=== PATIENT | female | born 1970 | race American Indian/Alaskan Native ===

== ENCOUNTER 2018-07-24 17:59 | Emergency (ER) | payer OTHER ==
--- NOTE | 2018-07-24 18:08 | Emergency Department Report ---
Blank Doc - Documentation Documentation: 47 y o ld [place] and daughter presents to Ed cc of bed bug bites aCc eval
[2018-07-24 18:36] VITALS: BP 125/80
--- NOTE | 2018-07-24 18:57 | Emergency Department Report ---
ED Rash HPI - HPI Chief Complaint: Skin Rash Stated Complaint: BED BUGS? Time Seen by Provider: 07/24/18 18:06 Location: Upper Extremities Suspected Cause: Insect Rash Symptoms: Yes Itching, No Facial Swelling, No Tongue/Oral Swelling, No Breathing Difficulties, No Choking Sensation, No Wheezing/Dyspnea, No Peeling, No Blistering, No Fever, No Lightheaded, No Malaise, No Myalgias Severity: mild, moderate ED Review of Systems ROS: Stated complaint: BED BUGS? Other details as noted in HPI Comment: All other systems reviewed and negative ED Past Medical Hx - Past Medical History Previous Medical History?: Yes Hx Psychiatric Treatment: Yes - Surgical History Past Surgical History?: No - Social History Smoking Status: Current Every Day Smoker Substance Use Type: Alcohol, Prescribed - Medications Home Medications: Home Medications Medication Instructions Recorded Confirmed Last Taken Type Acetaminophen/Codeine [Tylenol #3] 1 tab PO Q6H PRN #20 tab 02/02/15 Unknown Rx Ibuprofen [Motrin] 600 mg PO Q8H PRN #40 tablet 02/02/15 Unknown Rx cephALEXin [Keflex] 500 mg PO Q6HR #40 capsule 02/02/15 Unknown Rx Calamine/Zinc Oxide [Calamine 1 ml TP DAILY #1 lotion 07/24/18 Unknown Rx Lotion] Permethrin 5% [Acticin 5% CREAM] 1 applicatio TP 1XW #1 tube 07/24/18 Unknown Rx diphenhydrAMINE [Benadryl CAP] 25 mg PO QHS PRN #30 capsule 07/24/18 Unknown Rx Rash Exam - Exam General: Vital signs noted. No distress. Alert and acting appropriately. HEENT: No Periorbital Edema, No Conjuctival Injection, No Chemosis, No Perioral Edema, No Tongue Edema, No Uvular Edema, No Compromised Airway, No Drooling Lungs: Yes Good Air Exchange (Normal Breath Sounds), No Wheezes, No Ronchi, No Stridor, No Cough, No Labored Respirations, No Retractions, No Use of Accessory Muscles, No Other Abnormal Lung Sounds Heart: Yes Regular, No Murmur Skin: Yes Urticarial Rash, Yes Maculopapular Rash, Yes Erythema (erythema is insect bite thomas on arms), No Morbilliform rash, No Bulla(e), No Excoriations, No Weeping, No Tenderness, No Edema, No Encrustations, No Other Other: Positive: Abdomen Normal, Neurologic Normal, Musculoskeletal Normal ED Course Vital Signs 07/24/18 18:34 Temperature 98.8 F Pulse Rate 73 Respiratory 20 Rate Blood Pressure 125/80 O2 Sat by Pulse 99 Oximetry ED Medical Decision Making - Medical Decision Making 27-year-old female presents with insect bite. Discussed with patient to follow up with primary care physician. She is in no acute distress. Discussed with pt to use medication as prescribed. Critical care attestation.: If time is entered above; I have spent that time in minutes in the direct care of this critically ill patient, excluding procedure time. ED Disposition Clinical Impression: Bed bug bite Disposition: TO HOME OR SELFCARE Is pt being admited?: No Does the pt Need Aspirin: No Condition: Stable Instructions: Insect Bite or Sting (ED) Additional Instructions: f/u with pcp take medication as presecibed Prescriptions: diphenhydrAMINE [Benadryl CAP] 25 mg PO QHS PRN #30 capsule PRN Reason: Itching Permethrin 5% [Acticin 5% CREAM] 1 applicatio TP 1XW #1 tube Calamine/Zinc Oxide [Calamine Lotion] 1 ml TP DAILY #1 lotion Referrals: ROBERT ROSARIO MD [Primary Care Provider] - 3-5 Days Forms: Work/School Release Form(ED) Time of Disposition: 19:09
== END 2018-07-24 19:18 | disposition home or self-care (01) ==
LOC: ED 17:59
DX: S40.869A Insect bite (nonvenomous) of unspecified upper arm, initial encounter (principal); L50.9 Urticaria, unspecified; F17.200 Nicotine dependence, unspecified, uncomplicated; F19.10 Other psychoactive substance abuse, uncomplicated; W57.XXXA Bitten or stung by nonvenomous insect and other nonvenomous arthropods, initial encounter; Y93.89 Activity, other specified; Y92.89 Other specified places as the place of occurrence of the external cause; Y99.8 Other external cause status
CPT/HCPCS: 99282

== ENCOUNTER 2018-08-28 05:03 | Observation (INO) | payer OTHER ==
[2018-08-28 06:16] LABS: Basophils # (Auto) 0.1 K/mm3 (0.0-0.1); Basophils % (Auto) 0.7 % (0.0-1.8); Eosinophils # (Auto) 0.1 K/mm3 (0.0-0.4); Eosinophils % (Auto) 1.7 % (0.0-4.3); Hematocrit 40.1 % (30.3-42.9); Hemoglobin 13.3 gm/dl (10.1-14.3); Lymphocytes # (Auto) 1.5 K/mm3 (1.2-5.4); Lymphocytes % (Auto) 20.8 % (13.4-35.0); Mean Corpuscular HGB Conc 33 % (30-34); Mean Corpuscular Volume 100 fl (79-97); Monocytes # (Auto) 0.4 K/mm3 (0.0-0.8); Monocytes % (Auto) 5.9 % (0.0-7.3); Platelet Count 184 K/mm3 (140-440); Red Blood Count 4.02 M/mm3 (3.65-5.03); Red Cell Distribution Width 14.4 % (13.2-15.2)
[2018-08-28 06:42] LABS: Alanine Aminotransferase 6 units/L (7-56); Albumin 3.9 g/dL (3.9-5); BUN/Creatinine Ratio 13; Blood Urea Nitrogen 12 mg/dL (7-17); Calcium 9.1 mg/dL (8.4-10.2); Hemolysis Index 30
--- NOTE | 2018-08-28 07:10 | XRay Report ---
CHEST PA AND LATERAL VIEWS INDICATION: Chest pain. COMPARISON: None. FINDINGS: Support devices: None. Heart: Within normal limits. Lungs/Pleura: No acute pulmonary or pleural findings. IMPRESSION: 1. No significant abnormality. Signer Name: Oswaldo Hartman MD Signed: 08/28/2018 7:06 AM Workstation Name: [id number]
--- NOTE | 2018-08-28 09:05 | Emergency Department Report ---
ED Chest Pain HPI - General Chief Complaint: Chest Pain Stated Complaint: CHEST PAIN Time Seen by Provider: 08/28/18 09:01 Source: patient, EMS Mode of arrival: Stretcher Limitations: No Limitations - History of Present Illness Initial Comments: This is a 47-year-old female presents for evaluation of chest pain. She states that the pain woke her up from sleep and increased on deep inspiration. She did have some shortness of breath but no cough. She denied leg pain or swelling. She states a month ago she went to [place] but has had no recent traveling otherwise. She did complain of some back discomfort but no arm or neck radiation. She states that she has not experienced chest pain like this before. Patient states that she's been told her cholesterol is elevated but is not on medication. Apparently she has a history of a psychiatric disorder but is not on medication for this either at this time. She states that her of a heart attack in 2015. She does not have any first-degree relatives that were diagnosed with significant coronary artery disease. MD Complaint: chest pain -: unknown Onset: awoke with symptoms Pain Location: substernal Severity: moderate Quality: heaviness Consistency: constant Improves With: nothing Worsens With: inspiration re: dyspnea. denies: nausea, vomting, diaphoresis, sense of impending doom Other Symptoms: denies: cough, fever, syncope Treatments Prior to Arrival: none Aspirin use within the Past 7 Days: (0) No - Related Data Previous Rx's Medication Instructions Recorded Last Taken Type Acetaminophen/Codeine [Tylenol #3] 1 tab PO Q6H PRN #20 tab 02/02/15 Unknown Rx Ibuprofen [Motrin] 600 mg PO Q8H PRN #40 tablet 02/02/15 Unknown Rx cephALEXin [Keflex] 500 mg PO Q6HR #40 capsule 02/02/15 Unknown Rx Calamine/Zinc Oxide [Calamine 1 ml TP DAILY #1 lotion 07/24/18 Unknown Rx Lotion] Permethrin 5% [Acticin 5% CREAM] 1 applicatio TP 1XW #1 tube 07/24/18 Unknown Rx diphenhydrAMINE [Benadryl CAP] 25 mg PO QHS PRN #30 capsule 07/24/18 Unknown Rx Allergies Allergy/AdvReac Type Severity Reaction Status Date / Time No Known Allergies Allergy Verified 06/02/19 18:01 Heart Score - HEART Score History: Moderately suspicious EKG: Normal Age: 45-65 Risk factors: 1-2 risk factors Troponin: < normal limit HEART Score: 3 - Critical Actions Critical Actions: 0-3 pts:0.9-1.7%risk of adverse cardiac event.Candidate for discharge ED Review of Systems ROS: Stated complaint: CHEST PAIN Other details as noted in HPI Constitutional: denies: chills, fever Eyes: denies: eye pain, eye discharge, vision change ENT: denies: ear pain, throat pain Respiratory: shortness of breath. denies: cough, wheezing Cardiovascular: chest pain. denies: palpitations Endocrine: no symptoms reported Gastrointestinal: denies: abdominal pain, nausea, diarrhea Genitourinary: denies: urgency, dysuria, discharge Musculoskeletal: denies: joint swelling, arthralgia Skin: denies: rash, lesions Neurological: denies: headache, weakness, paresthesias Psychiatric: denies: anxiety, depression Hematological/Lymphatic: denies: easy bleeding, easy bruising ED Past Medical Hx - Past Medical History Hx Psychiatric Treatment: Yes - Surgical History Past Surgical History?: No - Social History Smoking Status: Current Every Day Smoker - Medications Home Medications: Home Medications Medication Instructions Recorded Confirmed Last Taken Type Acetaminophen/Codeine [Tylenol #3] 1 tab PO Q6H PRN #20 tab 02/02/15 Unknown Rx Ibuprofen [Motrin] 600 mg PO Q8H PRN #40 tablet 02/02/15 Unknown Rx cephALEXin [Keflex] 500 mg PO Q6HR #40 capsule 02/02/15 Unknown Rx Calamine/Zinc Oxide [Calamine 1 ml TP DAILY #1 lotion 07/24/18 Unknown Rx Lotion] Permethrin 5% [Acticin 5% CREAM] 1 applicatio TP 1XW #1 tube 07/24/18 Unknown Rx diphenhydrAMINE [Benadryl CAP] 25 mg PO QHS PRN #30 capsule 07/24/18 Unknown Rx ED Physical Exam - General Limitations: No Limitations General appearance: alert, in no apparent distress, obese - Head Head exam: Present: atraumatic, normocephalic - Eye Eye exam: Present: normal appearance. Absent: scleral icterus - ENT ENT exam: Present: mucous membranes moist - Neck Neck exam: Present: normal inspection. Absent: tenderness, meningismus - Respiratory Respiratory exam: Present: normal lung sounds bilaterally. Absent: respiratory distress - Cardiovascular Cardiovascular Exam: Present: regular rate, normal rhythm. Absent: systolic murmur, diastolic murmur, rubs, gallop - GI/Abdominal GI/Abdominal exam: Present: soft, normal bowel sounds. Absent: distended, tenderness, guarding, rebound, rigid - Extremities Exam Extremities exam: Present: normal inspection - Back Exam Back exam: Present: normal inspection - Neurological Exam Neurological exam: Present: alert, oriented X3, CN II-XII intact. Absent: motor sensory deficit - Psychiatric Psychiatric exam: Present: normal affect, normal mood - Skin Skin exam: Present: warm, dry, intact, normal color. Absent: rash ED Course Vital Signs 08/28/18 08/28/18 08/28/18 05:44 08:41 11:30 Temperature 97.7 F Pulse Rate 75 74 59 L Respiratory 18 16 16 Rate Blood Pressure 116/77 Blood Pressure 115/71 133/80 [Left] O2 Sat by Pulse 96 96 96 Oximetry - Reevaluation(s) Reevaluation #1: I was informed that the CTA was a poor injection. I will order a VQ scan. Patient to be admitted by the hospitalist service for further care and evaluation. 08/28/18 10:58 MIGUEL score - Miguel Score Age > 65: (0) No Aspirin use within the Past 7 Days: (0) No 3 or more CAD Risk Factors: (0) No 2 or more Angina events in past 24 hrs: (0) No Known CAD with more than 50% Stenosis: (0) No Elevated Cardiac Markers: (0) No ST Deviation Greater than 0.5mm: (0) No MIGUEL Score: 0 ED Medical Decision Making - Lab Data Result diagrams: 08/28/18 05:59 08/28/18 05:59 Laboratory Results - last 24 hr 08/28/18 08/28/18 08/28/18 05:59 05:59 05:59 WBC 7.2 RBC 4.02 Hgb 13.3 Hct 40.1 MCV 100 H MCH 33 H MCHC 33 RDW 14.4 Plt Count 184 Lymph % (Auto) 20.8 [place] % (Auto) 5.9 Eos % (Auto) 1.7 Baso % (Auto) 0.7 Lymph # 1.5 [place] # 0.4 Eos # 0.1 Baso # 0.1 Seg Neutrophils % 70.9 H Seg Neutrophils # 5.1 D-Dimer 265.07 H Sodium 143 Potassium 4.1 Chloride 104.4 Carbon Dioxide 28 Anion Gap 15 BUN 12 Creatinine 0.9 Estimated GFR > 60 BUN/Creatinine Ratio 13 Glucose 105 H Calcium 9.1 Total Bilirubin 0.20 AST 16 ALT 6 L Alkaline Phosphatase 55 Troponin T < 0.010 Total Protein 6.9 Albumin 3.9 Albumin/Globulin Ratio 1.3 HCG, Qual 08/28/18 05:59 WBC RBC Hgb Hct MCV MCH MCHC RDW Plt Count Lymph % (Auto) [place] % (Auto) Eos % (Auto) Baso % (Auto) Lymph # [place] # Eos # Baso # Seg Neutrophils % Seg Neutrophils # D-Dimer Sodium Potassium Chloride Carbon Dioxide Anion Gap BUN Creatinine Estimated GFR BUN/Creatinine Ratio Glucose Calcium Total Bilirubin AST ALT Alkaline Phosphatase Troponin T Total Protein Albumin Albumin/Globulin Ratio HCG, Qual Negative - EKG Data -: EKG Interpreted by Wy EKG shows normal: sinus rhythm, axis, intervals, QRS complexes, ST-T waves Rate: normal - EKG Data Interpretation: other (borderline first-degree AV block) - Radiology Data Radiology results: report reviewed IMPRESSION: 1. Suboptimal contrast bolus timing given extravasation as described above. Within this limitation, there is no large central PTE identified. The distal segmental and subsegmental distribution vessels are not adequately evaluated. It should be noted that the lungs are clear with no pleural effusion or even atelectasis. The heart size is also normal. Critical care attestation.: If time is entered above; I have spent that time in minutes in the direct care of this critically ill patient, excluding procedure time. ED Disposition Clinical Impression: Chest pain Qualifiers: Chest pain type: unspecified Qualified Code(s): R07.9 - Chest pain, unspecified Disposition: OP ADMIT IP TO THIS HOSP Is pt being admited?: Yes Does the pt Need Aspirin: Yes Condition: Stable Instructions: Chest Pain (ED) Referrals: MIGUEL BONNER MD [Primary Care Provider] - 3-5 Days Time of Disposition: 11:36
[2018-08-28] MEDS ORDERED: MORPHINE IV ONE (09:27)
[2018-08-28] MEDS ORDERED: NACL 0.9% 1000 ML 1,000 ML IV ONE (09:27)
[2018-08-28] MEDS ORDERED: ZOFRAN IV ONE (09:27)
[2018-08-28] MEDS ORDERED: ASPIRIN PO ONE (09:27)
--- NOTE | 2018-08-28 11:18 | Cat Scan Report ---
CTA chest with contrast INDICATION : Pleuritic CP. Generalized chest pain and heaviness since 3:00 AM today TECHNIQUE: Axial imaging performed through the chest, with contrast bolus timing set to maximize opa cification of the pulmonary arteries. 3-plane MIP reformatted images were obtained. All CT scans at this location are performed using CT dose reduction for ALARA by means of automated exposure control. Approximately 70 mL of intravenous contrast administered. Approximately 30 mL of contrast infiltrated in the antecubital fossa region. [facility] with retained sensat ion and had no significant pain. COMPARISON: None FINDINGS: Bolus: Suboptimal bolus timing given extravasation as above. PTE: No large central PTE identified. The distal segmental and subsegmental distribution is not adeq uately evaluated. Mediastinum: Heart and great vessels appear normal. No pathologic mediastinal adenopathy. Lungs: Lungs are clear. Upper abdomen: Limited imaging of the upper abdomen shows nothing acute. Bones: Degenerative changes in the spine with nothing acute. IMPRESSION: 1. Suboptimal contrast bolus timing given extravasation as described above. Within this limitation, t here is no large central PTE identified. The distal segmental and subsegmental distribution vessels a re not adequately evaluated. It should be noted that the lungs are clear with no pleural effusion or even atelectasis. The heart size is also normal. Signer Name: Yoel Wilder MD Signed: 08/28/2018 11:14 AM Workstation Name: [id number]
[2018-08-28] MEDS: DILAUDID IV PRN (17:32)
[2018-08-28] MEDS ORDERED: ZOFRAN IV PRN (19:23)
[2018-08-28] MEDS ORDERED: PERCOCET 5/325 PO PRN (19:23)
[2018-08-28] MEDS ORDERED: TYLENOL PO PRN (19:23)
[2018-08-28] MEDS ORDERED: SODIUM CHLORIDE FLUSH SYRINGE 10 ML IV PRN (19:23)
--- NOTE | 2018-08-28 19:26 | History and Physical Report ---
History of Present Illness Date of examination: 08/28/18 Date of admission: 08/28/18 13:17 Chief complaint: Chest pain since early AM History of present illness: 47-year-old female presents for evaluation of chest pain. She states that the pain woke her up from sleep and increased on deep inspiration. She did have some shortness of breath but no cough. No diaphoresis or palpitations.Chest pain is intermittent and 6/10 on a scale of 1 to 10. Past Medical History Hx Psychiatric Treatment: Yes Surgical History Past Surgical History?: No Social History Smoking Status: Current Every Day Smoker Family History Htn Medications Home Medications: Home Medications Medication Instructions Recorded Confirmed Last Taken Type Acetaminophen/Codeine [Tylenol #3] 1 tab PO Q6H PRN #20 tab 02/02/15 Unknown Rx Ibuprofen [Motrin] 600 mg PO Q8H PRN #40 tablet 02/02/15 Unknown Rx cephALEXin [Keflex] 500 mg PO Q6HR #40 capsule 02/02/15 Unknown Rx Calamine/Zinc Oxide [Calamine 1 ml TP DAILY #1 lotion 07/24/18 Unknown Rx Lotion] Permethrin 5% [Acticin 5% CREAM] 1 applicatio TP 1XW #1 tube 07/24/18 Unknown Rx diphenhydrAMINE [Benadryl CAP] 25 mg PO QHS PRN #30 capsule 07/24/18 Unknown Rx Review of Systems ROS: Stated complaint: CHEST PAIN Other details as noted in HPI Constitutional: denies: chills, fever Eyes: denies: eye pain, eye discharge, vision change ENT: denies: ear pain, throat pain Respiratory: shortness of breath. denies: cough, wheezing Cardiovascular: chest pain. denies: palpitations Endocrine: no symptoms reported Gastrointestinal: denies: abdominal pain, nausea, diarrhea Genitourinary: denies: urgency, dysuria, discharge Musculoskeletal: denies: joint swelling, arthralgia Skin: denies: rash, lesions Neurological: denies: headache, weakness, paresthesias Psychiatric: denies: anxiety, depression Hematological/Lymphatic: denies: easy bleeding, easy bruising Medications and Allergies Allergies Allergy/AdvReac Type Severity Reaction Status Date / Time No Known Allergies Allergy Verified 08/28/18 17:01 Home Medications Medication Instructions Recorded Confirmed Last Taken Type No Known Home Medications [No 08/28/18 08/28/18 Unknown History Reported Home Medications] Active Meds: Active Medications Hydromorphone HCl (Dilaudid) 0.5 mg IV Q3H PRN PRN Reason: Pain , Severe (7-10) Last Admin: 08/28/18 17:32 Dose: 0.5 mg Documented by: Exam - Constitutional Vitals: Temp Pulse Resp BP Pulse Ox 98.9 F 78 18 114/69 97 08/28/18 16:27 08/28/18 16:27 08/28/18 16:27 08/28/18 16:27 08/28/18 16:27 General appearance: Present: no acute distress, well-nourished - EENT Eyes: Present: PERRL ENT: hearing intact, clear oral mucosa - Neck Neck: Present: supple, normal ROM - Respiratory Respiratory effort: normal Respiratory: bilateral: CTA - Cardiovascular Heart rate: 70 Rhythm: regular Heart Sounds: Present: S1 & S2. Absent: rub, click - Extremities Extremities: no ischemia, pulses intact, pulses symmetrical, No edema Peripheral Pulses: within normal limits - Abdominal General gastrointestinal: Present: soft, non-tender, non-distended, normal bowel sounds Female genitourinary: Present: normal - Rectal Rectal Exam: deferred - Integumentary Integumentary: Present: clear, warm, dry - Musculoskeletal Musculoskeletal: gait normal, strength equal bilaterally - Psychiatric Psychiatric: appropriate mood/affect, intact judgment & insight - Neurologic Neurologic: CNII-XII intact, moves all extremities - Allied Health Allied health notes reviewed: nursing, case management Results - Labs CBC & Chem 7: 08/29/18 03:00 08/29/18 03:00 Labs: Laboratory Last Values WBC 7.2 K/mm3 (4.5-11.0) 08/28/18 05:59 RBC 4.02 M/mm3 (3.65-5.03) 08/28/18 05:59 Hgb 13.3 gm/dl (10.1-14.3) 08/28/18 05:59 Hct 40.1 % (30.3-42.9) 08/28/18 05:59 MCV 100 fl (79-97) H 08/28/18 05:59 MCH 33 pg (28-32) H 08/28/18 05:59 MCHC 33 % (30-34) 08/28/18 05:59 RDW 14.4 % (13.2-15.2) 08/28/18 05:59 Plt Count 184 K/mm3 (140-440) 08/28/18 05:59 Lymph % (Auto) 20.8 % (13.4-35.0) 08/28/18 05:59 [place] % (Auto) 5.9 % (0.0-7.3) 08/28/18 05:59 Eos % (Auto) 1.7 % (0.0-4.3) 08/28/18 05:59 Baso % (Auto) 0.7 % (0.0-1.8) 08/28/18 05:59 Lymph # 1.5 K/mm3 (1.2-5.4) 08/28/18 05:59 [place] # 0.4 K/mm3 (0.0-0.8) 08/28/18 05:59 Eos # 0.1 K/mm3 (0.0-0.4) 08/28/18 05:59 Baso # 0.1 K/mm3 (0.0-0.1) 08/28/18 05:59 Seg Neutrophils % 70.9 % (40.0-70.0) H 08/28/18 05:59 Seg Neutrophils # 5.1 K/mm3 (1.8-7.7) 08/28/18 05:59 265.07 ng/mlDDU (0-234) H 08/28/18 05:59 Sodium 143 mmol/L (137-145) 08/28/18 05:59 Potassium 4.1 mmol/L (3.6-5.0) 08/28/18 05:59 Chloride 104.4 mmol/L (98-107) 08/28/18 05:59 Carbon Dioxide 28 mmol/L (22-30) 08/28/18 05:59 15 mmol/L 08/28/18 05:59 BUN 12 mg/dL (7-17) 08/28/18 05:59 0.9 mg/dL (0.7-1.2) 08/28/18 05:59 Estimated GFR > 60 ml/min 08/28/18 05:59 13 % 08/28/18 05:59 Glucose 105 mg/dL (65-100) H 08/28/18 05:59 Calcium 9.1 mg/dL (8.4-10.2) 08/28/18 05:59 0.20 mg/dL (0.1-1.2) 08/28/18 05:59 AST 16 units/L (5-40) 08/28/18 05:59 ALT 6 units/L (7-56) L 08/28/18 05:59 55 units/L (35-129) 08/28/18 05:59 < 0.010 ng/mL (0.00-0.029) 08/28/18 05:59 6.9 g/dL (6.3-8.2) 08/28/18 05:59 3.9 g/dL (3.9-5) 08/28/18 05:59 1.3 % 08/28/18 05:59 HCG, Qual Negative (Negative) 08/28/18 05:59 Short CBC 08/29/18 Range/Units 03:00 WBC 6.2 (4.5-11.0) K/mm3 Hgb 12.3 (10.1-14.3) gm/dl Hct 37.0 (30.3-42.9) % Plt Count 176 (140-440) K/mm3 BMP 08/29/18 03:00 Sodium 137 Potassium 3.9 Chloride 101.4 Carbon Dioxide 24 BUN 10 Creatinine 0.8 Glucose 88 Calcium 8.7 Cardiac Enzymes 08/28/18 08/29/18 Range/Units 20:33 00:43 Troponin T < 0.010 < 0.010 (0.00-0.029) ng/mL Liver Function 08/29/18 Range/Units 03:00 Total Bilirubin 0.50 (0.1-1.2) mg/dL AST 13 (5-40) units/L ALT < 5 L (7-56) units/L Alkaline Phosphatase 50 (35-129) units/L Albumin 3.4 L (3.9-5) g/dL - Imaging and Cardiology EKG: report reviewed (NSR 70/min) Chest x-ray: report reviewed (NAF) Imaging and Cardiology: CTA Chest IMPRESSION: 1. Suboptimal contrast bolus timing given extravasation as described above. Within this limitation, there is no large central PTE identified. The distal segmental and subsegmental distribution vessels are not adequately evaluated. It should be noted that the lungs are clear with no pleural effusion or even atelectasis. The heart size is also normal. Assessment and Plan Advance Directives: Yes (FC) VTE prophylaxis?: Chemical Plan of care discussed with patient/family: Yes - Patient Problems (1) Chest pain Current Visit: Yes Status: Acute Qualifiers: Chest pain type: unspecified Qualified Code(s): R07.9 - Chest pain, unspecified Plan to address problem: R/o [place] Chest pain protocol Serial troponins Lexiscan in AM Diff dx of costochondritis and GErd (2) GERD (gastroesophageal reflux disease) Current Visit: Yes Status: Chronic Qualifiers: Esophagitis presence: without esophagitis Qualified Code(s): K21.9 - Gastro-esophageal reflux disease without esophagitis Plan to address problem: On Protonix (3) Extravasation injury of intravenous catheter site with other complication Current Visit: Yes Status: Acute Qualifiers: Encounter type: initial encounter Qualified Code(s): T82.898A - Other specified complication of vascular prosthetic devices, implants and grafts, initial encounter Plan to address problem: On Rt foraarm Conservvative treatment Hand elevation. (4) DVT prophylaxis Current Visit: Yes Status: Acute (5) DVT prophylaxis Current Visit: Yes Status: Acute Plan to address problem: On Lovenox and GI prophylaxis
[2018-08-28] MEDS: PEPCID IV SCH (21:30)
[2018-08-28] MEDS: SODIUM CHLORIDE FLUSH SYRINGE 10 ML IV SCH (21:30)
--- NOTE | 2018-08-28 22:55 | Nuclear Medicine Report ---
NM lung scan perf/vent INDICATION / CLINICAL INFORMATION: Pleuritic chest pain.. TECHNIQUE: Dose / Agent / Route: 13.5 mCi xenon 133 gas was inhaled and 5.3 mCi technetium 99m-MAA was administe red intravenously. COMPARISON: CT angiography of the chest performed earlier today. FINDINGS: No significant ventilatory abnormality is seen. There is patchy heterogeneity of perfusion throughout both lungs. No segmental or larger perfusion defect is seen. Today's chest radiograph is clear. IMPRESSION: Low probability for acute PTE. Signer Name: Anshul Fuentes MD Signed: 08/28/2018 10:50 PM Workstation Name: [id number]
[2018-08-29 03:31] LABS: Basophils % (Auto) 0.6 % (0.0-1.8); Eosinophils # (Auto) 0.2 K/mm3 (0.0-0.4); Eosinophils % (Auto) 2.4 % (0.0-4.3); Hemoglobin 12.3 gm/dl (10.1-14.3); Lymphocytes % (Auto) 31.7 % (13.4-35.0); Mean Corpuscular HGB Conc 33 % (30-34); Mean Corpuscular Volume 100 fl (79-97); Monocytes # (Auto) 0.5 K/mm3 (0.0-0.8); Monocytes % (Auto) 8.1 % (0.0-7.3); Platelet Count 176 K/mm3 (140-440); Red Cell Distribution Width 14.2 % (13.2-15.2)
[2018-08-29 03:55] LABS: Albumin 3.4 g/dL (3.9-5); BUN/Creatinine Ratio 13; Blood Urea Nitrogen 10 mg/dL (7-17); Calcium 8.7 mg/dL (8.4-10.2); Hemolysis Index 21
[2018-08-29 04:02] LABS: Alanine Aminotransferase < 5 units/L (7-56)
[2018-08-29] MEDS: PEPCID IV SCH ×2 (09:19→21:41)
[2018-08-29] MEDS: SODIUM CHLORIDE FLUSH SYRINGE 10 ML IV SCH ×2 (09:19→21:41)
[2018-08-29] MEDS: DILAUDID IV PRN ×2 (09:19→17:50)
--- NOTE | 2018-08-29 13:07 | Progress Note ---
Assessment and Plan Assessment and plan: Patient is a 47 yo woman with a history of tobacco dependency who presented with chest pains with deep breathing. * CTA Chest IMPRESSION: 1. Suboptimal contrast bolus timing given extravasation as described above. Within this limitation, there is no large central PTE identified. The distal segmental and subsegmental distribution vessels are not adequately evaluated. It should be noted that the lungs are clear with no pleural effusion or even atelectasis. The heart size is also normal. * V/Q lung scan: Low probability for PE (1) Chest pain Current Visit: Yes Status: Acute Qualifiers: Chest pain type: unspecified Qualified Code(s): R07.9 - Chest pain, unspecified Plan to address problem: R/o GA Chest pain protocol Serial troponins Lexiscan in AM Diff dx of costochondritis and GErd (2) GERD (gastroesophageal reflux disease) Current Visit: Yes Status: Chronic Qualifiers: Esophagitis presence: without esophagitis Qualified Code(s): K21.9 - Gastro-esophageal reflux disease without esophagitis Plan to address problem: On Protonix (3) Extravasation injury of intravenous catheter site with other complication Current Visit: Yes Status: Acute Qualifiers: Encounter type: initial encounter Qualified Code(s): T82.898A - Other specified complication of vascular prosthetic devices, implants and grafts, initial encounter Plan to address problem: On Rt foraarm Conservvative treatment Hand elevation. (4) DVT prophylaxis Current Visit: Yes Status: Acute Plan to address problem: On Lovenox and GI prophylaxis stress test in am, not today due to v/q scan History Interval history: Patient was seen and examined. Follow-up on current diagnosis of chest pains, none at rest but only with deep breathing. No overnight events reported to me. Patient denies any chest pain, shortness breath, nausea/vomiting or severe headaches. Imaging, nursing note, chart, labs and old chart reviewed. Discussed with patient. Hospitalist Physical - Physical exam Narrative exam: Gen: WDWN, NAD, Awake, Alert, Orientated HEENT: NCAT, EOMI, PERRL, OP Clear Neck: supple, no adenopathy, no thyromegaly, no JVD CVS/Heart: RRR, normal S1S2, pulses present bilaterally Chest/Lungs: CTA B, Symmetrical chest expansion, good air entry bilaterally GI/Abdomen: soft, NTND, good bowel sounds, no guarding or rebound /Bladder: no suprapubic tenderness, no CVA or paraspinal tenderness Extermity/Skin: no c/c/e, no obvious rash MSK: FROM x 4 Neuro: CN 2-12 grossly intact, no new focal deficits Psych: calm - Constitutional Vitals: Temp Pulse Resp BP Pulse Ox 98.4 F 79 18 102/70 98 08/29/18 11:38 08/29/18 11:38 08/29/18 11:38 08/29/18 11:38 08/29/18 11:38 General appearance: Present: no acute distress, well-nourished Results - Labs CBC & Chem 7: 08/29/18 03:00 08/29/18 03:00 Labs: Laboratory Last Values WBC 6.2 K/mm3 (4.5-11.0) 08/29/18 03:00 RBC 3.70 M/mm3 (3.65-5.03) 08/29/18 03:00 Hgb 12.3 gm/dl (10.1-14.3) 08/29/18 03:00 Hct 37.0 % (30.3-42.9) 08/29/18 03:00 MCV 100 fl (79-97) H 08/29/18 03:00 MCH 33 pg (28-32) H 08/29/18 03:00 MCHC 33 % (30-34) 08/29/18 03:00 RDW 14.2 % (13.2-15.2) 08/29/18 03:00 Plt Count 176 K/mm3 (140-440) 08/29/18 03:00 Lymph % (Auto) 31.7 % (13.4-35.0) 08/29/18 03:00 Calvert % (Auto) 8.1 % (0.0-7.3) H 08/29/18 03:00 Eos % (Auto) 2.4 % (0.0-4.3) 08/29/18 03:00 Baso % (Auto) 0.6 % (0.0-1.8) 08/29/18 03:00 Lymph # 2.0 K/mm3 (1.2-5.4) 08/29/18 03:00 Calvert # 0.5 K/mm3 (0.0-0.8) 08/29/18 03:00 Eos # 0.2 K/mm3 (0.0-0.4) 08/29/18 03:00 Baso # 0.0 K/mm3 (0.0-0.1) 08/29/18 03:00 Seg Neutrophils % 57.2 % (40.0-70.0) 08/29/18 03:00 Seg Neutrophils # 3.6 K/mm3 (1.8-7.7) 08/29/18 03:00 265.07 ng/mlDDU (0-234) H 08/28/18 05:59 Sodium 137 mmol/L (137-145) 08/29/18 03:00 Potassium 3.9 mmol/L (3.6-5.0) 08/29/18 03:00 Chloride 101.4 mmol/L (98-107) 08/29/18 03:00 Carbon Dioxide 24 mmol/L (22-30) 08/29/18 03:00 16 mmol/L 08/29/18 03:00 BUN 10 mg/dL (7-17) 08/29/18 03:00 0.8 mg/dL (0.7-1.2) 08/29/18 03:00 Estimated GFR > 60 ml/min 08/29/18 03:00 13 % 08/29/18 03:00 Glucose 88 mg/dL (65-100) 08/29/18 03:00 5.4 % (4-6) 08/28/18 20:33 Calcium 8.7 mg/dL (8.4-10.2) 08/29/18 03:00 0.50 mg/dL (0.1-1.2) 08/29/18 03:00 AST 13 units/L (5-40) 08/29/18 03:00 ALT < 5 units/L (7-56) L 08/29/18 03:00 50 units/L (35-129) 08/29/18 03:00 < 0.010 ng/mL (0.00-0.029) 08/29/18 00:43 5.7 g/dL (6.3-8.2) L 08/29/18 03:00 3.4 g/dL (3.9-5) L 08/29/18 03:00 1.5 % 08/29/18 03:00 HCG, Qual Negative (Negative) 08/28/18 05:59 Active Medications - Current Medications Current Medications: Generic Name Dose Route Start Last Admin Trade Name Freq PRN Reason Stop Dose Admin Acetaminophen 650 mg 08/28/18 19:23 Tylenol PO Q4H PRN Pain MILD(1-3)/Fever >100.5/FULLER Famotidine 20 mg 08/28/18 22:00 08/29/18 09:19 Pepcid IV 20 mg BID CLOVER Administration Hydromorphone HCl 0.5 mg 08/28/18 16:53 08/29/18 09:19 Dilaudid IV 0.5 mg Q3H PRN Administration Pain , Severe (7-10) Ondansetron HCl 4 mg 08/28/18 19:23 Zofran IV Q8H PRN Nausea And Vomiting Oxycodone/Acetaminophen 1 tab 08/28/18 19:23 Percocet 5/325 PO Q6H PRN Pain, Moderate (4-6) Sodium Chloride 10 ml 08/28/18 22:00 08/29/18 09:19 Sodium Chloride Flush Syringe 10 Ml IV 10 ml BID CLOVER Administration Sodium Chloride 10 ml 08/28/18 19:23 Sodium Chloride Flush Syringe 10 Ml IV PRN PRN LINE FLUSH
[2018-08-30] MEDS: DILAUDID IV PRN (07:18)
[2018-08-30] MEDS ORDERED: LEXISCAN IV ONE (08:25)
[2018-08-30] MEDS ORDERED: ZOFRAN ONE (10:26)
[2018-08-30 12:27] VITALS: BP 114/72
[2018-08-30] MEDS: SODIUM CHLORIDE FLUSH SYRINGE 10 ML IV SCH (13:21)
[2018-08-30] MEDS: PEPCID IV SCH (13:21)
--- NOTE | 2018-08-30 13:25 | Discharge Summary ---
Providers - Providers Date of Admission: 08/28/18 13:17 Date of discharge: 08/30/18 Attending physician: ANATOLIY oscar stress test Primary care physician: MIGUEL MERCER MD Hospitalization Condition: Stable Hospital course: Patient presented with atypical chest pain exacerbated by movement and reproducible chest pain in substernal area. Patient had negative isoenzymes stress tests unremarkable. Physical exam consistent with costochondritis. Disposition: - TO HOME OR SELFCARE - Discharge Diagnoses (1) Chest pain Status: Acute Qualifiers: Chest pain type: unspecified Qualified Code(s): R07.9 - Chest pain, un specified Core Measure Documentation - Palliative Care Palliative Care/ Comfort Measures: Not Applicable - Core Measures Any of the following diagnoses?: none Exam - Constitutional Vitals: Temp Pulse Resp BP Pulse Ox 98.2 F 83 20 114/72 97 08/30/18 04:34 08/30/18 12:26 08/30/18 07:18 08/30/18 12:26 08/30/18 12:26 General appearance: Present: no acute distress, well-nourished - EENT Eyes: Present: PERRL ENT: hearing intact, clear oral mucosa - Neck Neck: Present: supple, normal ROM - Respiratory Respiratory effort: normal Respiratory: bilateral: CTA - Cardiovascular Heart Sounds: Present: S1 & S2. Absent: rub, click - Extremities Extremities: pulses symmetrical, No edema Peripheral Pulses: within normal limits - Abdominal General gastrointestinal: Present: soft, non-tender, non-distended, normal bowel sounds Female genitourinary: Present: normal - Integumentary Integumentary: Present: clear, warm, dry - Musculoskeletal Musculoskeletal: gait normal, strength equal bilaterally - Psychiatric Psychiatric: appropriate mood/affect, intact judgment & insight - Neurologic Neurologic: CNII-XII intact, moves all extremities Plan Activity: no restrictions Diet: low fat, low cholesterol Follow up with: MIGUEL BONNER MD [Primary Care Provider] - 3-5 Days
--- NOTE | 2018-09-02 00:12 | Treadmill Report ---
NUCLEAR PERFUSION SCAN REFERRING PHYSICIAN: Dr. Ro. PROTOCOL: The patient was brought to the stress lab in a postabsorptive state, given 10 mCi of technetium 99m at rest. The patient underwent rest imaging. The patient underwent Lexiscan stress test. At peak stress, the patient was given 26 mCi of technetium 99m. Shortly thereafter, the patient underwent stress imaging. Raw imaging reveals mild GI artifact. No significant motion artifact. SPECT image examined carefully in horizontal long axis, vertical long axis, and short axis views. There is normal homogenous uptake of radioisotope in all reported segments. No evidence of significant fixed or reversible perfusion defects suggestive of prior infarction or active ischemia. Gated wall motion is normal systolic thickening, calculated ejection fraction of 60%. No TID. CONCLUSIONS: 1. Normal myocardial perfusion scan without evidence of active ischemia or prior infarction. 2. Normal left ventricular systolic performance without evidence of transient ischemic dilatation or stress-induced segmental wall motion abnormalities. JOB# [id number] WAQAS/KRISTINA
== END 2018-08-30 14:20 | disposition home or self-care (01) ==
LOC: ED 05:03 → 4A 13:17
PROVIDERS: ADMIT Internal Medicine; ATTEND Internal Medicine
DX: R07.89 Other chest pain (principal); K21.9 Gastro-esophageal reflux disease without esophagitis; T82.898A Other specified complication of vascular prosthetic devices, implants and grafts, initial encounter; F17.200 Nicotine dependence, unspecified, uncomplicated; Y84.8 Other medical procedures as the cause of abnormal reaction of the patient, or of later complication, without mention of misadventure at the time of the procedure; Y92.9 Unspecified place or not applicable
CPT/HCPCS: 36415; 71046; 71275; 78452; 78582; 80053; 83036; 84484; 84703; 85025; 85379; 93005; 93010; 93017; 96374; 96375; 96376; 99284; 99406; A9502; A9540; A9558; G0378; J1170; J2270; J2405; J2785; J7030; Q9967

== ENCOUNTER 2020-02-11 10:29 | Emergency (ER) | payer BC, OTHER ==
[2020-02-11 10:36] VITALS: BP 118/75
--- NOTE | 2020-02-11 12:25 | Emergency Department Report ---
- General Chief Complaint: Upper Respiratory Infection Stated Complaint: FLU SYM Time Seen by Provider: 02/11/20 12:21 Source: patient Mode of arrival: Ambulatory Limitations: No Limitations - History of Present Illness Initial Comments: Patient is a 49-year-old female presents emergency room complaints of viral-like symptoms that began 3 days ago. She states that her daughter is positive for COVID-19. She states that she did travel to [place]. She is complaining of generalized body aches, fever, occasional dry cough, loss of sense of smell and taste. She denies any vomiting, diarrhea, sore throat, ear pain, chest pain, shortness of breath, abdominal pain. Past medical history. No daily medications. No allergies medications. - Related Data Previous Rx's Medication Instructions Recorded Last Taken Type methylPREDNISolone [Medrol 4MG 4 mg PO DAILY #20 tab.ds.pk 08/30/18 Unknown Rx DOSEPAK (21 tabs)] Allergies Allergy/AdvReac Type Severity Reaction Status Date / Time No Known Allergies Allergy Verified 08/28/18 17:01 ED Review of Systems ROS: Stated complaint: FLU SYM Other details as noted in HPI Comment: All other systems reviewed and negative ED Past Medical Hx - Past Medical History Previous Medical History?: Yes Hx Psychiatric Treatment: Yes - Social History Smoking Status: Current Every Day Smoker - Medications Home Medications: Home Medications Medication Instructions Recorded Confirmed Last Taken Type methylPREDNISolone [Medrol 4MG 4 mg PO DAILY #20 tab.ds.pk 08/30/18 Unknown Rx DOSEPAK (21 tabs)] ED Physical Exam - General Limitations: No Limitations General appearance: alert, in no apparent distress - Head Head exam: Present: atraumatic, normocephalic - Eye Eye exam: Present: normal appearance - ENT ENT exam: Present: normal orophraynx, mucous membranes moist, TM's normal bilaterally, normal external ear exam - Respiratory Respiratory exam: Present: normal lung sounds bilaterally. Absent: respiratory distress, wheezes, rales, rhonchi, stridor, chest wall tenderness, accessory muscle use, decreased breath sounds, prolonged expiratory - Cardiovascular Cardiovascular Exam: Present: regular rate, normal rhythm, normal heart sounds. Absent: systolic murmur, diastolic murmur, rubs, gallop - Neurological Exam Neurological exam: Present: alert, oriented X3 - Psychiatric Psychiatric exam: Present: normal affect, normal mood - Skin Skin exam: Present: warm, dry, intact ED Course Vital Signs 02/11/20 10:35 Temperature 98.6 F Pulse Rate 83 Respiratory 18 Rate Blood Pressure 118/75 [Right] O2 Sat by Pulse 98 Oximetry ED Medical Decision Making - Medical Decision Making Patient is a 49-year-old female presents emergency room complaints of viral-like symptoms that began 3 days ago. She states that her daughter is positive for COVID-19. She states that she did travel to [place]. She is complaining of generalized body aches, fever, occasional dry cough, loss of sense of smell and taste. She denies any vomiting, diarrhea, sore throat, ear pain, chest pain, shortness of breath, abdominal pain. Past medical history. No daily medications. No allergies medications. Vitals are normal. No hypoxia, no tachycardia, no tachypnea, no hypotension. Breath sounds are clear bilaterally, no wheezing, no rales, no rhonchi, normal oropharynx, normal TMs and canals bilaterally. Patient does not have any clinical signs of bacterial pneumonia or bacterial bronchitis at this time. She has no clinical signs of dehydration. Patient is presenting with the symptoms during COVID-19 pandemic and she has had a contact with a COVID-19 positive person, discussed the possibility of COVID- 19 with patient, discussed very strict return precautions, discussed outpatient testing, discussed self quarantine. Patient does not meet hospital criteria for admission or for hospital COVID-19 testing. Advised patient Please increase your fluid intake over the next several days. May take Tylenol as needed for fever or body aches. May take zsoo-aet-rpxanyn cold symptom relief medication such as Mucinex or TheraFlu. Follow-up with a primary care doctor for reexamination. Return to emergency room immediately for any new or worsening symptoms including but not limited to difficulty breathing, shortness of breath, severe chest pain, unable to tolerate by mouth intake, etc. Please self quarantine for 10 days from the onset of your symptoms. Please do not go out in public. If you are around others at home please wear a mask. If you need to c ough or sneeze please do so in a napkin and immediately throw it away and immediately wash your hands. Wash your hands frequently. Wipe everything down. Recommend for you to get COVID-19 testing, may have this done at primary care doctor, health department, [facility] drive thru testing center. Critical care attestation.: If time is entered above; I have spent that time in minutes in the direct care of this critically ill patient, excluding procedure time. ED Disposition Clinical Impression: Viral URI with cough Disposition: DC-01 TO HOME OR SELFCARE Is pt being admited?: No Does the pt Need Aspirin: No Condition: Stable Instructions: Viral Respiratory Infection, Bxph-Pe-Cirl, COVID-19: How to Protect Yourself and Others - CDC, COVID-19, Prevent the Spread of COVID-19 if You Are Sick - [facility] Additional Instructions: Please increase your fluid intake over the next several days. May take Tylenol as needed for fever or body aches. May take cgqe-ykb-oknnrbd cold symptom relief medication such as Mucinex or TheraFlu. Follow-up with a primary care doctor for reexamination. Return to emergency room immediately for any new or worsening symptoms including but not limited to difficulty breathing, shortness of breath, severe chest pain, unable to tolerate by mouth intake, etc. Please self quarantine for 10 days from the onset of your symptoms. Please do not go out in public. If you are around others at home please wear a mask. If you need to cough or sneeze please do so in a napkin and immediately throw it away and immediately wash your hands. Wash your hands frequently. Wipe everything down. Recommend for you to get COVID-19 testing, may have this done at primary care doctor, health department, [facility] thru testing center. Referrals: your, primary care doctor [Other] - 2-3 Days Forms: Work/School Release Form(ED) Time of Disposition: 12:24 Print Language: WOLOF
== END 2020-02-11 13:08 | disposition home or self-care (01) ==
LOC: ED 10:29
DX: J06.9 Acute upper respiratory infection, unspecified (principal); B97.89 Other viral agents as the cause of diseases classified elsewhere; R05 Cough; F17.200 Nicotine dependence, unspecified, uncomplicated; Z79.899 Other long term (current) drug therapy
CPT/HCPCS: 99281

== ENCOUNTER 2020-11-14 12:04 | Emergency (ER) | payer BC ==
[2020-11-14 12:09] VITALS: BP 120/76
--- NOTE | 2020-11-14 12:20 | Emergency Department Report ---
[facility] Chief Complaint: Eye Problems Stated Complaint: PINK EYE Time Seen by Provider: 11/14/20 12:08 Duration: 1 Day Side: Left Severity: mild Symptoms: Yes Eye Itching, Yes Eye Redness, No Eye Pain, No Mucous Drainage, No Purulent Drainage, No Blurred Vision, No Preceding URI, No H/O Allergic Rhinitis, No Contact Lens Use, No Trauma, No Fever, No Headache Other History: This is a 49-year-old female nontoxic, well nourished in appearance, no acute signs of distress presents to the ED with c/o of left eye redness, itching and crusting that started yesterday. Patient denies any trauma to the eye. Denies any foreign body sensation or floaters. Patient denies any eye pain. Patient denies any visual changes or decreased vision. Patient denies any fever, chills, nausea, vomiting, chest pain, breath, headache, stiff neck numbness or tingling. Patient denies any allergies. ED Review of Systems ROS: Stated complaint: PINK EYE Other details as noted in HPI Comment: All other systems reviewed and negative Constitutional: denies: chills, fever Eyes: eye discharge. denies: eye pain, vision change ENT: denies: ear pain, throat pain Respiratory: denies: cough, shortness of breath, wheezing Cardiovascular: denies: chest pain, palpitations Endocrine: no symptoms reported Gastrointestinal: denies: abdominal pain, nausea, diarrhea Genitourinary: denies: urgency, dysuria, discharge Musculoskeletal: denies: back pain, joint swelling, arthralgia Skin: denies: rash, lesions Neurological: denies: headache, weakness, paresthesias Psychiatric: denies: anxiety, depression Hematological/Lymphatic: denies: easy bleeding, easy bruising ED Past Medical Hx - Past Medical History Hx Psychiatric Treatment: Yes - Surgical History Past Surgical History?: No - Social History Smoking Status: Current Every Day Smoker - Medications Home Medications: Home Medications Medication Instructions Recorded Confirmed Last Taken Type methylPREDNISolone [Medrol 4MG 4 mg PO DAILY #20 tab.ds.pk 08/30/18 Unknown Rx DOSEPAK (21 tabs)] Polymyxin B Sulf/Trimethoprim 3 drops TID 7 Days #1 bottle 11/14/20 Unknown Rx [Polytrim Eye Drops] [facility] Exam - Exam General: Vital signs noted. No distress. Alert and acting appropriately. Eye Exam: Neither Injection, Neither Abnormal Pupil, Neither EOMI, Neither Eye Foreign Body, Neither Lid Foreign Body, Neither Fluorescein Uptake, Neither Corneal Edema, Neither Photophobia HEENT: No Nasal Congestion, No Pharyngeal Erythema Remainder of HEENT: Normal Lungs: Yes Clear Lung Sounds, Yes Good Air Exchange, No Wheezes, No Stridor, No Cough, No Nasal Flaring, No Retractions, No Use of Accessory Muscles Exam: Left eye sclera erythema with itching ED Course Vital Signs 11/14/20 12:08 Temperature 98.2 F Pulse Rate 82 Respiratory 18 Rate Blood Pressure 120/76 O2 Sat by Pulse 98 Oximetry - Reevaluation(s) Reevaluation #1: 11/14/20 12:15 Patient is speaking in full sentences with no signs of distress noted. ED Medical Decision Making - Medical Decision Making Patient presents with conjunctivitis. Patient is stable and was examined by me. Otherwise physical exam is unremarkable. Patient be treated with Polytrim at discharge. Educated on conjunctivitis and precautions as this is contagious. Patient was instructed to follow-up with a media sales representative doctor in 3-5 days or if symptoms worsen and continue return to emergency room as soon as possible. At time of discharge, the patient does not seem toxic or ill in appearance. No acute signs of distress noted. Patient agrees to discharge treatment plan of care. No further questions noted by the patient. Critical care attestation.: If time is entered above; I have spent that time in minutes in the direct care of this critically ill patient, excluding procedure time. ED Disposition Clinical Impression: Conjunctivitis, left eye Qualifiers: Conjunctivitis type: acute Acute conjunctivitis type: bacterial Qualified Code(s): H10.32 - Unspecified acute conjunctivitis, left eye Disposition: HOME / SELF CARE / HOMELESS Is pt being admited?: No Does the pt Need Aspirin: No Condition: Stable Instructions: How to Use Eye Drops and Eye Ointments, Bacterial Conjunctivitis, Adult, [id number] Additional Instructions: Follow-up with a media sales representative doctor in 3-5 days or if symptoms worsen and continue return to emergency room as soon as possible. Prescriptions: Polymyxin B Sulf/Trimethoprim [Polytrim Eye Drops] 3 drops TID 7 Days #1 bottle Referrals: PRIMARY CAREMD [Referring] - 3-5 Days LACY PIKE MD [Staff Physician] - 3-5 Days Forms: Work/School Release Form(ED) Time of Disposition: 12:22
== END 2020-11-14 13:01 | disposition home or self-care (01) ==
LOC: ED 12:04
DX: H10.32 Unspecified acute conjunctivitis, left eye (principal); F17.200 Nicotine dependence, unspecified, uncomplicated
CPT/HCPCS: 99282